=== PATIENT | male | born 1975 | race Caucasian/White ===

== ENCOUNTER 2020-01-06 15:00 | Emergency (ER) | payer BC ==
[2020-01-06 15:11] VITALS: BP 188/112; PULSE 77; RESP 16; TEMP 98.1
--- NOTE | 2020-01-06 15:48 | XR ---
EXAMINATION TYPE: XR hand complete RT DATE OF EXAM: 01/06/2020 CLINICAL HISTORY: Right hand pain and swelling after fall one week ago TECHNIQUE: Frontal, lateral and oblique images of the right hand are obtained. COMPARISON: None FINDINGS: There is no acute fracture/dislocation evident in the right hand. The joint spaces appear within normal limits. The overlying soft tissue appears unremarkable. IMPRESSION: There is no acute fracture or dislocation in the right hand.
--- NOTE | 2020-01-06 15:58 | ED ---
Upper Extremity HPI - General Chief Complaint: Extremity Injury, Upper Stated Complaint: hand pain/swelling Time Seen by Provider: 01/06/20 15:13 Source: patient Mode of arrival: ambulatory Limitations: no limitations - History of Present Illness Initial Comments: Patient is a 44-year-old male presenting to the emergency department complaints of right hand pain x 1 week. Patient states he fell onto his right hand last week and states he has been noticing an increase in pain and swelling throughout this week. He denies any previous injuries or surgeries to his right hand. He denies any other injuries from his fall. He has no further complaints at this time. Upon arrival to the ER his vitals are stable. - Related Data Allergies Allergy/AdvReac Type Severity Reaction Status Date / Time No Known Allergies Allergy Verified 01/06/20 15:10 Review of Systems ROS Statement: Those systems with pertinent positive or pertinent negative responses have been documented in the HPI. ROS Other: All systems not noted in ROS Statement are negative. Past Medical History Past Medical History: Hypertension History of Any Multi-Drug Resistant Organisms: None Reported Past Surgical History: No Surgical Hx Reported Past Psychological History: No Psychological Hx Reported Smoking Status: Never smoker Past Alcohol Use History: Occasional Past Drug Use History: None Reported General Exam - General Exam Comments Initial Comments: GENERAL: Patient is well-developed and well-nourished. Patient is nontoxic and in no acute distress. HEAD: Atraumatic, normocephalic. EYES: Pupils equal round and reactive to light, extraocular movements intact, sclera anicteric, conjunctiva are normal. Eyelids were unremarkable. ENT: TMs normal, nares patent, oropharynx clear without exudates. Moist mucous membranes. NECK: Normal range of motion, supple without lymphadenopathy or JVD. LUNGS: Unlabored respirations. Breath sounds clear to auscultation bilaterally and equal. No wheezes rales or rhonchi. HEART: Regular rate and rhythm without murmurs, rubs or gallops. ABDOMEN: Soft, nontender, normoactive bowel sounds. No guarding, no rebound. No masses appreciated. : Deferred MUSCULOSKELETAL: Patient has some mild pain to palpation of the third metacarpal of the right hand, there is some swelling along this region as well, mostly dorsal aspect. Patient does have full range of motion of his right hand although very tight feeling with full flexion. Pain in the right wrist or right forearm. No clubbing or cyanosis. NEUROLOGICAL: Patient is alert and oriented x 3. Normal speech, normal gait. Symmetrical smile. PSYCH: Normal mood, normal affect. SKIN: Warm, Dry, normal turgor, no rashes or lesions noted. Limitations: no limitations Course Vital Signs 01/06/20 15:08 Temperature 98.1 F Pulse Rate 77 Respiratory 16 Rate Blood Pressure 188/112 O2 Sat by Pulse 97 Oximetry Medical Decision Making - Medical Decision Making Patient is a 44-year-old male presenting with right hand pain times one week after falling on it. X-rays reviewed today revealed no acute fractures dislocations. I did discuss this with the patient. This is most likely a bone or soft tissue contusion. I recommended continue with ice, ibuprofen for discomfort. If symptoms persist, follow up with orthopedics. Patient is agreement with this plan of care and he is stable for discharge. Disposition Clinical Impression: Contusion of right hand Disposition: HOME SELF-CARE Condition: Stable Instructions (If sedation given, give patient instructions): Contusion in Adults (ED) Additional Instructions: Please return to the Emergency Department if symptoms worsen or any other concerns. Recommend ice to the area, ibuprofen for discomfort. If symptoms persist for 1-2 weeks, follow up with orthopedics or your PCP. Is patient prescribed a controlled substance at d/c from ED?: No Referrals: Jacoby Almonte MD [Primary Care Provider] - 1-2 days
== END 2020-01-06 16:05 | disposition home or self-care (01) ==
LOC: EC 15:00
DX: S60.221A Contusion of right hand, initial encounter (principal); W19.XXXA Unspecified fall, initial encounter
CPT/HCPCS: 99283

== ENCOUNTER 2020-05-26 10:09 | Emergency (ER) | payer BC ==
[2020-05-26 10:16] VITALS: TEMP 98.5
--- NOTE | 2020-05-26 10:44 | ED ---
General Adult HPI - General Chief complaint: Neuro Symptoms/Deficit Stated complaint: Blurry Vision Time Seen by Provider: 05/26/20 10:15 Source: patient, RN notes reviewed, old records reviewed Mode of arrival: ambulatory Limitations: no limitations - History of Present Illness Initial comments: This is a 45-year-old male who presents to the emergency department complaining that on Tuesday he's had bright colors similar to a kaleidoscope and then the image expanded 1 out of his visual field and after that he had a headache that lasted about an hour that was quite significant. Patient states today he has the same visual disturbance and eventually the right colors grooved totally were out of his visual field and this time he did not get a headache. Currently patient is asymptomatic. Patient denies chest pain or palpitations. Patient states she does have high blood pressure. Patient denies any recent fever chills or cough. Patient denies any shortness of breath or difficulty breathing.patient denies any weakness or numbness. - Related Data Home Medications Medication Instructions Recorded Confirmed Metoprolol/Hydrochlorothiazide 1 tab PO HS 05/26/20 05/26/20 [Lopressor Hct 50-25 mg Tab] Allergies Allergy/AdvReac Type Severity Reaction Status Date / Time No Known Allergies Allergy Verified 05/26/20 10:54 Review of Systems ROS Statement: Those systems with pertinent positive or pertinent negative responses have been documented in the HPI. ROS Other: All systems not noted in ROS Statement are negative. Past Medical History Past Medical History: Hypertension History of Any Multi-Drug Resistant Organisms: None Reported Past Surgical History: No Surgical Hx Reported Additional Past Surgical History / Comment(s): wisdom teeth Past Psychological History: No Psychological Hx Reported Smoking Status: Never smoker Past Alcohol Use History: Occasional Past Drug Use History: None Reported General Exam - General Exam Comments Initial Comments: GENERAL: Patient is well-developed and well-nourished. Patient is nontoxic and well- hydrated and is in no acute distress. ENT: Neck is soft and supple. No significant lymphadenopathy is noted. Oropharynx is clear. Moist mucous membranes. Neck has full range of motion without eliciting any pain. EYES: The sclera were anicteric and conjunctiva were pink and moist. Extraocular movements were intact and pupils were equal round and reactive to light. Eyelids were unremarkable. PULMONARY: Unlabored respirations. Good breath sounds bilaterally. No audible rales rhonchi or wheezing was noted. CARDIOVASCULAR: There is a regular rate and rhythm without any murmurs gallops or rubs. ABDOMEN: Soft and nontender with normal bowel sounds. No palpable organomegaly was noted. There is no palpable pulsatile mass. SKIN: Skin is clear with no lesions or rashes and otherwise unremarkable. NEUROLOGIC: Patient is alert and oriented x3. Cranial nerves II through XII are grossly intact. Motor and sensory are also intact. Normal speech, volume and content. Symmetrical smile. MUSCULOSKELETAL: Normal extremities with adequate strength and full range of motion. LYMPHATICS: No significant lymphadenopathy is noted PSYCHIATRIC: Normal psychiatric evaluation. Limitations: no limitations Course Vital Signs 05/26/20 05/26/20 05/26/20 10:13 10:50 11:01 Temperature 98.5 F Pulse Rate 83 79 77 Respiratory 18 18 18 Rate Blood Pressure 190/117 148/109 147/100 O2 Sat by Pulse 98 99 95 Oximetry Medical Decision Making - Medical Decision Making EKG shows normal sinus rhythm at 69 bpm MO interval is 150 QRS is 14 Q-T intervals 410 QTC is 439. Patient's EKG shows no ST segment elevation or depression. Chest x-ray showed no acute abnormality. CT showed no acute abnormality. - Lab Data Result diagrams: 05/26/20 10:56 05/26/20 10:56 Lab Results 05/26/20 05/26/20 05/26/20 Range/Units 10:56 10:56 10:56 WBC 6.0 (3.8-10.6) k/uL RBC 5.27 (4.30-5.90) m/uL Hgb 16.1 (13.0-17.5) gm/dL Hct 47.0 (39.0-53.0) % MCV 89.2 (80.0-100.0) fL MCH 30.6 (25.0-35.0) pg MCHC 34.3 (31.0-37.0) g/dL RDW 12.3 (11.5-15.5) % Plt Count 237 (150-450) k/uL MPV 6.4 Neutrophils % 43 % Lymphocytes % 41 % Monocytes % 9 % Eosinophils % 4 % Basophils % 1 % Neutrophils # 2.6 (1.3-7.7) k/uL Lymphocytes # 2.4 (1.0-4.8) k/uL Monocytes # 0.5 (0-1.0) k/uL Eosinophils # 0.2 (0-0.7) k/uL Basophils # 0.1 (0-0.2) k/uL Sodium 138 (137-145) mmol/L Potassium 3.7 (3.5-5.1) mmol/L Chloride 104 (98-107) mmol/L Carbon Dioxide 29 (22-30) mmol/L Anion Gap 5 mmol/L BUN 15 (9-20) mg/dL Creatinine 1.06 (0.66-1.25) mg/dL Est GFR (CKD-EPI)AfAm >90 (>60 ml/min/1.73 sqM) Est GFR (CKD-EPI)NonAf 85 (>60 ml/min/1.73 sqM) Glucose 101 H (74-99) mg/dL Calcium 9.8 (8.4-10.2) mg/dL Total Bilirubin 0.5 (0.2-1.3) mg/dL AST 35 (17-59) U/L ALT 60 H (4-49) U/L Alkaline Phosphatase 58 (38-126) U/L Troponin I <0.012 (0.000-0.034) ng/mL Total Protein 7.2 (6.3-8.2) g/dL Albumin 4.3 (3.5-5.0) g/dL Disposition Clinical Impression: Migraine with aura Disposition: HOME SELF-CARE Instructions (If sedation given, give patient instructions): Migraine Headache (ED) Is patient prescribed a controlled substance at d/c from ED?: No Referrals: Jacoby Almonte MD [Primary Care Provider] - 1-2 days Time of Disposition: 11:50
[2020-05-26 11:05] LABS: Basophils # (A) 0.1 k/uL (0-0.2); Basophils % (A) 1 %; Eosinophils # (A) 0.2 k/uL (0-0.7); Eosinophils % (A) 4 %; HGB 16.1 gm/dL (13.0-17.5); Lymphocytes # (A) 2.4 k/uL (1.0-4.8); Lymphocytes % (A) 41 %; MCH 30.6 pg (25.0-35.0); MCHC 34.3 g/dL (31.0-37.0); MCV 89.2 fL (80.0-100.0); Mean Platelet Volume 6.4; Monocytes # (A) 0.5 k/uL (0-1.0); Monocytes % (A) 9 %; Neutrophils # (A) 2.6 k/uL (1.3-7.7); Neutrophils % (A) 43 %; Platelet Count 237 k/uL (150-450); RBC 5.27 m/uL (4.30-5.90); RDW 12.3 % (11.5-15.5)
[2020-05-26] MEDS ORDERED: hydrALAZINE HCL 20 MG/ML 1 ML VIAL IVP STA (11:11)
--- NOTE | 2020-05-26 11:19 | XR ---
EXAMINATION TYPE: XR chest 2V DATE OF EXAM: 05/26/2020 COMPARISON: None HISTORY: 45-year-old male confusion, altered mental status TECHNIQUE: PA and lateral views FINDINGS: The cardiomediastinal silhouette, aorta, and pulmonary vasculature are within normal limits. Lungs an d pleural spaces are clear. IMPRESSION: No acute cardiopulmonary process.
[2020-05-26 11:20] LABS: ALT 60 U/L (4-49); AST 35 U/L (17-59); African American GFR (CKD) >90 (>60 ml/min/1.73 sqM); Albumin 4.3 g/dL (3.5-5.0); Alkaline Phosphatase 58 U/L (38-126); Anion Gap 5 mmol/L; Blood Urea Nitrogen 15 mg/dL (9-20); Calcium 9.8 mg/dL (8.4-10.2); Carbon Dioxide 29 mmol/L (22-30); Chloride 104 mmol/L (98-107); Glucose 101 mg/dL (74-99); Non-African American GFR(CKD) 85 (>60 ml/min/1.73 sqM); Potassium 3.7 mmol/L (3.5-5.1); Sodium 138 mmol/L (137-145); Total Bilirubin 0.5 mg/dL (0.2-1.3); Total Protein 7.2 g/dL (6.3-8.2)
--- NOTE | 2020-05-26 11:22 | CT ---
EXAMINATION TYPE: CT brain wo con DATE OF EXAM: 05/26/2020 COMPARISON: None HISTORY: Episodes of blurred vision without injury. History of HTN. CT DLP: 1119.4 mGycm. Automated Exposure Control for Dose Reduction was Utilized. TECHNIQUE: CT scan of the head is performed without contrast. FINDINGS: There is no acute intracranial hemorrhage, mass effect, or midline shift identified. The ventricles and sulci are within normal limits in size. The globes are intact and mucous retention c yst within the left maxillary antrum.. IMPRESSION: No acute intracranial hemorrhage, mass effect, or midline shift is seen.
[2020-05-26 11:54] VITALS: BP 130/88
[2020-05-26 12:00] VITALS: PULSE 80; RESP 18
== END 2020-05-26 11:59 | disposition home or self-care (01) ==
LOC: EC 10:09
DX: G43.109 Migraine with aura, not intractable, without status migrainosus (principal); I10 Essential (primary) hypertension; Z79.899 Other long term (current) drug therapy
CPT/HCPCS: 36415; 80053; 84484; 85025; 71046; 70450; 99285; 96374; J0360; 93005

== ENCOUNTER 2022-06-07 09:38 | Day surgery (SDC) | payer BC ==
[2022-06-03 10:59] VITALS: BMI 31.0
--- NOTE | 2022-06-07 07:18 | P.GSHP ---
History of Present Illness H&P Date: 06/07/22 CHIEF COMPLAINT: Colon screen HISTORY OF PRESENT ILLNESS: The patient is a 47-year-old male who presents for colon screen. Lower endoscopy was offered for further evaluation and management. PAST MEDICAL HISTORY: Please see list. PAST SURGICAL HISTORY: Please see list. MEDICATIONS: Please see list. ALLERGIES: Please see list. SOCIAL HISTORY: No illicit drug use FAMILY HISTORY: No reports of Crohn disease or ulcerative colitis. REVIEW OF ORGAN SYSTEMS: CONSTITUTIONAL: No reports of fevers or chills. PHYSICAL EXAM: VITAL SIGNS: Stable GENERAL: Well-developed pleasant in no acute distress. HEENT: No scleral icterus. Extraocular movements grossly intact. Moist buccal mucosa. NECK: Supple without lymphadenopathy. CHEST: Unlabored respirations. Equal bilateral excursions. CARDIOVASCULAR: Regular rate and rhythm. Distal 2+ pulses. ABDOMEN: Soft, nontender, nondistended. MUSCULOSKELETAL: No clubbing, cyanosis, or edema. ASSESSMENT: 1. Colon screen. PLAN: 1. Recommend proceeding with a lower endoscopy Past Medical History Past Medical History: Hypertension History of Any Multi-Drug Resistant Organisms: None Reported Past Surgical History: No Surgical Hx Reported Additional Past Surgical History / Comment(s): wisdom teeth Past Anesthesia/Blood Transfusion Reactions: No Reported Reaction Smoking Status: Never smoker - Past Family History Mother Family Medical History: Cancer Additional Family Medical History / Comment(s): BREAST AND LUNG Medications and Allergies Home Medications Medication Instructions Recorded Confirmed Type Metoprolol/Hydrochlorothiazide 1 tab PO HS 05/26/20 06/03/22 History [Lopressor Hct 50-25 mg Tab] amLODIPine [Norvasc] 10 mg PO DAILY 06/03/22 06/03/22 History Allergies Allergy/AdvReac Type Severity Reaction Status Date / Time No Known Allergies Allergy Verified 06/03/22 10:52
[2022-06-07] MEDS ORDERED: LACTATED RINGERS 1,000 ML IV ONE (09:49)
[2022-06-07] MEDS ORDERED: LIDOCAINE 1% (10MG/ML) FOR IV START INTRADERMA PRN (09:50)
[2022-06-07] MEDS ORDERED: LACTATED RINGERS 1,000 ML IV SCH (09:50)
[2022-06-07 09:56] VITALS: RESP 16; TEMP 98.2
[2022-06-07] MEDS ORDERED: PROPOFOL 10 MG/ML 20 ML VIAL IV ONE ×2 (10:11→10:39)
[2022-06-07] MEDS ORDERED: MIDAZOLAM 2 MG/2 ML VIAL ONE (10:39)
[2022-06-07 11:23] VITALS: BP 142/86; PULSE 88
--- NOTE | 2022-06-07 11:41 | P.PCN ---
Date of Procedure: 06/07/22 Description of Procedure: PREOPERATIVE DIAGNOSIS: Colonoscopy screening POSTOPERATIVE DIAGNOSIS: Tubular adenoma hepatic flexure Tubular adenoma ascending colon Sigmoid diverticulosis OPERATION: Colonoscopy to the ileocecal valve and appendiceal orifice, cecum Colonoscopy with hot snare polypectomy Colonoscopy with cold forceps biopsy SURGEON: Ting Moon MD. ANESTHESIA: MAC. INDICATIONS: The patient is an 47-year-old male who presents for his first colon screening. Benefits and risks were described and informed consent was obtained. DESCRIPTION OF PROCEDURE: The patient had undergone Sutab prep. The patient had been brought into the operating room and laid in the left lateral decubitus position. After adequate intravenous sedation, the rectum was examined with 2% lidocaine jelly. The prostate was unremarkable. No external hemorrhoids were encountered. The rectal tone was within normal limits. No lesions were palpated in the rectal vault. An Olympus colonoscope was advanced until the cecum, ileocecal valve and appendiceal orifice were clearly viewed. The prep was excellent. Few aigmoid diverticulosis was encountered. Colonic polyps were found and removed. No evidence of focal colitis was found. Retroflexion of the scope demonstrated grade 2 internal hemorrhoids without active bleeding or inflammation. The colon was desufflated. The patient had tolerated the procedure well. Withdrawal time was over 6 minutes. FINDINGS: Aronchick preparation quality scale 1 (1-5) Internal hemorrhoids, grade 2 External hemorrhoids, grade 2. No arteriovenous malformations. Sigmoid diverticulosis, few Removal of 2 polyps: - Snare polypectomy of ascending colon, 8 mm tubulovillous adenoma - Cold forceps biopsy at hepatic flexure, 4 mm polyp. No focal colitis. RECOMMENDATIONS: 1. Repeat colonoscopy in 3 years, 2024 Plan - Discharge Summary Discharge Rx Participant: No New Discharge Prescriptions: Continue Metoprolol/Hydrochlorothiazide [Lopressor Hct 50-25 mg Tab] 1 tab PO HS amLODIPine [Norvasc] 10 mg PO DAILY Discharge Medication List Metoprolol/Hydrochlorothiazide [Lopressor Hct 50-25 mg Tab] 1 tab PO HS 05/26/20 [History] amLODIPine [Norvasc] 10 mg PO DAILY 06/03/22 [History] Follow up Appointment(s)/Referral(s): Ting Moon MD [STAFF PHYSICIAN] - As Needed Patient Instructions/Handouts: *Surgery [facility] - (Anesthesia) Endoscopy Discharge Instructions Activity/Diet/Wound Care/Special Instructions: Repeat colonoscopy 3 years, 2024 Discharge Disposition: HOME SELF-CARE
== END 2022-06-07 12:06 | disposition home or self-care (01) ==
LOC: ORWHC2ENDO 09:38
PROVIDERS: ATTEND Surgery Plastic and Reconstructive Surgery
DX: Z12.11 Encounter for screening for malignant neoplasm of colon (principal); D12.2 Benign neoplasm of ascending colon; K64.1 Second degree hemorrhoids; K57.30 Diverticulosis of large intestine without perforation or abscess without bleeding; I10 Essential (primary) hypertension; Z79.899 Other long term (current) drug therapy; Z80.3 Family history of malignant neoplasm of breast; Z80.1 Family history of malignant neoplasm of trachea, bronchus and lung
CPT/HCPCS: 45380; 45385; J2250; J2704; 88305

== ENCOUNTER 2023-05-03 08:50 | Emergency (ER) | payer OTHER, BC ==
[2023-05-03] MEDS ORDERED: HYDROmorphone 0.5 MG/0.5 ML SYRINGE IM STA (09:06)
[2023-05-03] MEDS ORDERED: KETOROLAC 15 MG/ML 1 ML VIAL IM STA (09:06)
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
[2023-05-03] MEDS ORDERED: HYDROmorphone 1 MG/ML 1 ML SYRINGE IVP STA (09:13)
[2023-05-03] MEDS ORDERED: KETOROLAC 15 MG/ML 1 ML VIAL IVP STA ×2 (09:13→11:39)
[2023-05-03 09:19] VITALS: TEMP 98.2
--- NOTE | 2023-05-03 09:55 | XR ---
EXAMINATION TYPE: XR shoulder complete RT DATE OF EXAM: 05/03/2023 CLINICAL HISTORY: pain TECHNIQUE: 2 views of the right shoulder are obtained. COMPARISON: None FINDINGS: There is anterior shoulder dislocation of the humerus relative to the glenoid. There is als o elevation of the distal clavicle relative to the acromium and widening of the coracoclavicular spa ce. No obvious fractures are seen on this limited two-view study. IMPRESSION: 1. Anterior shoulder dislocation. 2. AC joint separation probable grade 3 type.
[2023-05-03] MEDS ORDERED: PROPOFOL 10 MG/ML 20 ML VIAL IV ONE ×2 (10:09→10:35)
[2023-05-03] MEDS ORDERED: ACET/COD 300 MG/30 MG STARTER PACK 6 TAB BTL PO STA (10:57)
[2023-05-03] MEDS ORDERED: IBUPROFEN 600 MG STARTER PACK 4 TAB BTL PO STA (10:57)
--- NOTE | 2023-05-03 11:29 | XR ---
EXAMINATION TYPE: XR shoulder complete RT DATE OF EXAM: 05/03/2023 CLINICAL HISTORY: Postreduction TECHNIQUE: 2 postreduction views are obtained of the right shoulder. COMPARISON: None FINDINGS: There is relocation of the humeral head relative to the glenoid. No sacs deformity is diffi cult to exclude. Elevation of the distal clavicle relative to the acromion is less conspicuous than o n the prior study. Correlate clinically. IMPRESSION: 1. As above
[2023-05-03] MEDS ORDERED: HYDROmorphone 0.5 MG/0.5 ML SYRINGE IVP STA (11:39)
[2023-05-03 12:20] VITALS: PULSE 79
[2023-05-03 12:46] VITALS: BP 133/85; RESP 20
== END 2023-05-03 12:30 | disposition home or self-care (01) ==
LOC: EC 08:50
DX: S43.101A Unspecified dislocation of right acromioclavicular joint, initial encounter (principal); I10 Essential (primary) hypertension; Z79.899 Other long term (current) drug therapy; Y04.0XXA Assault by unarmed brawl or fight, initial encounter; Y92.213 High school as the place of occurrence of the external cause
CPT/HCPCS: 73030; 23650; 99152; 99284; 96374; 96375; 96376 ×2; J1170 ×2; J1885; J2704

== ENCOUNTER → 2023-05-04 | Outpatient (CLI) | payer OTHER ==
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
== END | disposition home or self-care (01) ==
LOC: RADCTMAIN 11:35
PROVIDERS: ATTEND Emergency Medicine
DX: S00.83XA Contusion of other part of head, initial encounter (principal); S13.4XXA Sprain of ligaments of cervical spine, initial encounter; M47.812 Spondylosis without myelopathy or radiculopathy, cervical region; M99.71 Connective tissue and disc stenosis of intervertebral foramina of cervical region; X58.XXXA Exposure to other specified factors, initial encounter
CPT/HCPCS: 70450; 72125

== ENCOUNTER → 2023-05-10 | Outpatient (CLI) | payer OTHER ==
--- NOTE | 2023-05-13 17:52 | MR ---
EXAMINATION TYPE: MR shoulder RT wo con DATE OF EXAM: 05/10/2023 COMPARISON: None HISTORY: Injured right shoulder, pain TECHNIQUE: Multiplanar, multisequence imaging of the right shoulder is performed without contrast. FINDINGS: There is evidence for prior anterior dislocation of the glenohumeral joint. There is a Hill-Sachs les ion with deformity the posterior lateral humeral head and edema within the humeral head. There is a l arge glenohumeral joint effusion. There is tearing of the medial glenohumeral ligament and there is a Bankart lesion involving the anterior inferior cartilaginous labrum. There is moderate osteoarthritic change of the AC joint resulting in mild shoulder impingement. There are rim rent tears of both the supraspinatus and infraspinatus tendons without retraction of th e musculotendinous junctions. The subscapularis tendon is intact and the biceps tendon is normal in s ignal intensity and position within the bicipital groove and the biceps anchor is intact. A HAGL lesion is also suspected with avulsion of the inferior glenohumeral ligament from the humeral neck.. No subacromial or subdeltoid bursitis. IMPRESSION: 1. Hill-Sachs lesion as described above. 2. Bankart lesion involving the anterior inferior cartilaginous labrum. 3 tear of the middle glenohumeral ligament. 4. Probable HAGL lesion involving the inferior glenohumeral ligament 5. Large glenohumeral joint effusion. 6. Rim rent tears of the infraspinatus and supraspinatus tendon without retraction of musculotendinou s junctions. 7. Moderate osteoarthritic change of the AC joint with mild shoulder impingement.
== END | disposition home or self-care (01) ==
LOC: RADMRIMAIN 05:48
PROVIDERS: ATTEND Orthopaedic Surgery
DX: M19.011 Primary osteoarthritis, right shoulder (principal); M25.811 Other specified joint disorders, right shoulder; M25.411 Effusion, right shoulder; S42.294A Other nondisplaced fracture of upper end of right humerus, initial encounter for closed fracture; X58.XXXA Exposure to other specified factors, initial encounter

== ENCOUNTER → 2023-06-01 | Outpatient (CLI) | payer OTHER ==
--- NOTE | 2023-06-02 08:38 | MR ---
EXAMINATION TYPE: MR cervical spine wo con DATE OF EXAM: 06/01/2023 2:15 PM COMPARISON: NONE HISTORY: Neck/kelli shoulder pain Multiplanar MultiSpin echo imaging of the cervical spine was performed. Comparison: none C2-C3: No evidence for degenerative disc disease. No disc bulge/herniation or protrusion. No Canal stenosis. Foramina are patent bilaterally. C3-C4: No evidence for degenerative disc disease. No disc bulge/herniation or protrusion. No Canal stenosis. Foramina are patent bilaterally. C4-C5: No evidence for degenerative disc disease. No disc bulge/herniation or protrusion. No Canal stenosis. Foramina are patent bilaterally. C5-C6: No evidence for degenerative disc disease. Mild posterior disc bulging. No herniation or centr al stenosis. Mild right foraminal encroachment. C6-C7: No evidence for degenerative disc disease. Mild posterior disc bulging. No herniation or cent ral stenosis. Mild right foraminal encroachment. C7-T1: No evidence for degenerative disc disease. No disc bulge/herniation or protrusion. No Canal stenosis. Foramina are patent bilaterally. Cervical segments are intact. There is normal alignment. Cervical spinal cord is of normal signal. Craniovertebral junction relationships are within normal limits. IMPRESSION: 1. Mild disc bulging at C5-6 and C6-7 with right foraminal encroachment.
--- NOTE | 2023-06-02 08:39 | MR ---
EXAMINATION TYPE: MR shoulder LT wo con DATE OF EXAM: 06/01/2023 2:42 PM COMPARISON: NONE HISTORY: Neck/kelli shoulder pain TECHNIQUE: Multiplanar multispin echo imaging of the left shoulder was performed. FINDINGS: Rotator cuff : Partial tear superior surface supraspinatus tendon at the critical zone. No evidence f or full-thickness tear. Heterogeneity throughout the supraspinatus tendon compatible chronic tendinop athy. Remaining constituents of the rotator cuff are intact. Bursa: No bursal effusion or thickening is seen. Musculature: There is no muscular tear, contusion, or atrophy. Acromioclavicular joint : Moderate AC joint arthropathy. Lateral downsloping of the acromion with sma ll subacromial spur resulting in mild impingement. Osseous structures : There are no fractures or regions of abnormal bone marrow signal intensity. Long biceps tendon : The biceps tendon is normally situated within the bicipital groove. No complete or partial biceps tendon tear is present. Glenohumeral Joint fluid : There is no glenohumeral joint effusion. Cartilage and Bone : No focal hyaline cartilage defects are noted. No Hill-Sachs, reverse Hill-Sachs, or bony Bankart lesions are seen. Labrum : There are no SLAP or soft tissue Bankart lesions. No paralabral cysts are seen. OTHER FINDINGS : none IMPRESSION: 1. Partial tear superior surface supraspinatus tendon at the critical zone. No evidence for full-thic kness tear. Heterogeneity throughout the supraspinatus tendon compatible chronic tendinopathy.
== END | disposition home or self-care (01) ==
LOC: RADMRIMAIN 13:25
PROVIDERS: ATTEND Orthopaedic Surgery
DX: M50.222 Other cervical disc displacement at C5-C6 level (principal); M47.812 Spondylosis without myelopathy or radiculopathy, cervical region; M75.42 Impingement syndrome of left shoulder
CPT/HCPCS: 72141

== ENCOUNTER → 2023-06-06 | Outpatient (CLI) | payer OTHER ==
[2023-06-06 10:52] LABS: Basophils # (A) 0.09 X 10*3/uL (0.00-0.10); Basophils % (A) 1.5 %; Eosinophils # (A) 0.48 X 10*3/uL (0.04-0.35); Eosinophils % (A) 8.2 %; HCT 47.6 % (39.6-50.0); HGB 16.4 g/dL (13.0-17.0); Lymphocytes # (A) 2.37 X 10*3/uL (0.90-5.00); Lymphocytes % (A) 40.4 %; MCH 30.1 pg (27.0-32.0); MCHC 34.5 g/dL (32.0-37.0); MCV 87.3 FL (80.0-97.0); Mean Platelet Volume 9.5 FL (9.5-12.2); Monocytes # (A) 0.56 X 10*3/uL (0.20-1.00); Monocytes % (A) 9.5 %; NRBC Per 100 WBC 0 X 10*3/uL (0.00-0.01); Neutrophils # (A) 2.35 X 10*3/uL (1.80-7.70); Neutrophils % (A) 40.1 %; Platelet Count 251 X 10*3/uL (140-440); RBC 5.45 X 10*6/uL (4.40-5.60); WBC 5.87 X 10*3/uL (4.50-10.00)
[2023-06-06 11:01] LABS: BUN/Creat Ratio 18.78 Ratio (12.00-20.00); Blood Urea Nitrogen 16.9 mg/dL (9.0-27.0); Calcium 9.9 mg/dL (8.7-10.3); Carbon Dioxide 23.2 mmol/L (21.6-31.8); Chloride 103 mmol/L (96-109); Glucose 104 mg/dL (70-110); Sodium 139 mmol/L (135-145)
== END | disposition home or self-care (01) ==
LOC: LABPAT 07:39
PROVIDERS: ATTEND Orthopaedic Surgery
DX: Z01.812 Encounter for preprocedural laboratory examination (principal); S43.431A Superior glenoid labrum lesion of right shoulder, initial encounter; S46.011A Strain of muscle(s) and tendon(s) of the rotator cuff of right shoulder, initial encounter; Y99.9 Unspecified external cause status
CPT/HCPCS: 80048; 85025

== ENCOUNTER 2023-06-10 05:46 | Day surgery (SDC) | payer BC, OTHER ==
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
[2023-06-10] MEDS ORDERED: ONDANSETRON 4 MG/2 ML VIAL IVP ONE (06:12)
[2023-06-10] MEDS ORDERED: DEXAMETHASONE SOD PHOSPHATE 4 MG/ML 1 ML VIAL IV ONE (06:12)
[2023-06-10] MEDS ORDERED: SCOPOLAMINE 1 MG/72 HR PATCH TRANSDERM ONE (06:12)
[2023-06-10] MEDS ORDERED: LACTATED RINGERS 1,000 ML IV SCH (06:12)
[2023-06-10 06:44] VITALS: RESP 16
[2023-06-10] MEDS ORDERED: fentaNYL (PF) 50 MCG/ML 2 ML AMP IVP ONE (06:53)
[2023-06-10] MEDS ORDERED: MIDAZOLAM 2 MG/2 ML VIAL IVP ONE (06:53)
[2023-06-10] MEDS ORDERED: MIDAZOLAM 2 MG/2 ML VIAL IV PRN (07:00)
[2023-06-10] MEDS ORDERED: HYDROmorphone 0.5 MG/0.5 ML SYRINGE IVP PRN (07:00)
[2023-06-10] MEDS ORDERED: MIDAZOLAM 2 MG/2 ML VIAL ONE (07:25)
[2023-06-10] MEDS ORDERED: SUCCINYLCHOLINE CHLORIDE 200 MG/10 ML VIAL IV ONE (07:25)
[2023-06-10] MEDS ORDERED: ROPIVACAINE 5 MG/ML 30 ML VIAL ONE (07:25)
[2023-06-10] MEDS ORDERED: LIDOCAINE 1% INJ 10MG/ML (20 ML MDV) ONE (07:25)
[2023-06-10] MEDS ORDERED: fentaNYL (PF) 50 MCG/ML 2 ML AMP ONE (07:25)
[2023-06-10] MEDS ORDERED: PROPOFOL 10 MG/ML 20 ML VIAL IV ONE (07:25)
[2023-06-10] MEDS ORDERED: EPINEPHrine (PF) 1 ML in SODIUM CHLORIDE 0.9% IRRIGATIO 3,000 ML IRRIGATION ONE ×8 (07:30)
[2023-06-10] MEDS ORDERED: LACTATED RINGERS 1,000 ML IV ONE (09:25)
--- NOTE | 2023-06-10 09:36 | P.OP ---
Date of Procedure: 06/10/23 Preoperative Diagnosis: Right shoulder anterior labral tear Postoperative Diagnosis: Same Procedure(s) Performed: Right shoulder arthroscopic anterior labral repair Implants: Arthrex 1.8 mm suture tack 3 Anesthesia: [facility] regional Surgeon: Patel Kim [employer] Wheel [employer]ricator #1: Dallin Ceballos Estimated Blood Loss (ml): 10 Pathology: none sent Condition: stable Disposition: PACU Indications for Procedure: The patient's a 48-year-old male presents with left shoulder pain and instability after previous traumatic dislocation. A discussion of the risks and benefits of operative intervention versus conservative measures with patient. He opted proceed with surgery. Operative risks to include infection, neurovascular injury, development of blood clots, possible recurrent instability need for subsequent procedures was discussed. Informed consent was obtained. Operative Findings: As below Description of Procedure: The patient was brought to the operating room, and after induction of general anesthesia was placed in a beachchair position. A preoperative interscalene block was placed for postoperative analgesia. I examined the right shoulder. There was no gross block to passive motion. The [] upper extremity was prepped and draped in normal fashion. The bony outlines the acromion, distal clavicle, and coracoid process were outlined with a skin marker. The glenohumeral joint was inflated with 50 mL of saline utilizing a spinal needle from posterior approach. A posterior portal was made through a 5 mm skin incision 1 cm medial and inferior to the posterior lateral border time. A blunt trocar was used to easily into the joint. Diagnostic arthroscopy was performed. An anterior portal was made just lateral to the coracoid process entering the joint above the subscapularis tendon. The subscapularis tendon appeared to be intact. Anterior labrum was completely torn off the glenoid. The inferior recess was inspected. The posterior labrum was intact. On inspection the rotator cuff it appeared to be intact on the articular surface. 2 anterior portals were then made above the subscapularis and 2 cannulas were inserted. The anterior glenoid neck was then prepared with a motorized shaver. The labral tissue was then mobilized. 3-1.8 mm suture tacks were then placed at the 6:00, 4:00, and 2:00 positions. The repair suture was passed through the labral tissue with a lasso. After all 3 were placed, the knotless mechanism was utilized. Final tensioning was obtained and the sutures were cut. I felt that I had adequate shinto of the anterior labrum and anterior bumper. The arthroscope was then placed into the subacromial space. A lateral portal was made 2 centimeters inferior to the anterior lateral border of the acromion. The bursal tissue was debrided and the rotator cuff was inspected. It was felt to be intact. The arthroscope was then removed. The portals were closed with simple 3-0 nylon suture. A sterile dressing was applied in addition to a sling. The patient was then awoken from general anesthesia and transferred to recovery room in good condition. Blood loss was estimated at 10 mL. No complications were incurred. Sponge and needle counts were correct in the case. Dallin SANDY assisted and the major components of the case to include arm positioning, anchor placement, and labral repair.
[2023-06-10 10:30] VITALS: TEMP 96.8
--- NOTE | 2023-06-10 11:01 | P.ANPRN ---
Procedure Note - Anesthesia - Nerve Block Performed Right Interscalene Single Time Out Performed: Yes (0652) Date of Procedure: 06/10/23 Procedure Start Time: 06:53 Procedure Stop Time: 06:55 Location of Patient: PreOp Indication: Acute Post-Operative Pain, Requested by Surgeon Specifically requested for management of pain by : Patel Kim Sedation Type: Sedate with meaningful contact maintained Preparation: Sterile Prep Position: Supine Catheter: None Needle Types: Pajunk Needle Gauge: 21 Ultrasound used to visualize needle placement: Yes Ultrasound used to observe medication spread: Yes Injectate: 0.5% Ropivacaine (see comment for volume) (30cc) Blood Aspirated: No Pain Paresthesia on Injection Noted: No Resistance on Injection: Normal Image Stored and Saved: Yes Events: Uneventful and Well Tolerated
[2023-06-10 11:21] VITALS: BP 139/87; PULSE 87
== END 2023-06-10 11:38 | disposition home or self-care (01) ==
LOC: OR 05:46
PROVIDERS: ATTEND Orthopaedic Surgery
DX: S43.431A Superior glenoid labrum lesion of right shoulder, initial encounter (principal); G89.18 Other acute postprocedural pain; I10 Essential (primary) hypertension; F17.200 Nicotine dependence, unspecified, uncomplicated; Z80.3 Family history of malignant neoplasm of breast; Z80.1 Family history of malignant neoplasm of trachea, bronchus and lung; Z79.899 Other long term (current) drug therapy; X58.XXXA Exposure to other specified factors, initial encounter
CPT/HCPCS: 29806; J2250; J1100; J0690; J2405; J0171; J3010; 64415